=== PATIENT | female | born 1960 | race Caucasian/White ===

== ENCOUNTER 2019-07-10 20:07 | Inpatient (IN) | payer BC ==
[~2019-07-10] VITALS: Ht 152.4 cm; Wt 44.5 kg
[2019-07-10 20:17] VITALS: Ht 152.4 cm; Wt 44.5 kg
--- NOTE | 2019-07-10 20:23 | NUR ---
PT BIBA FOR SOB ONSET YESTERDAY/ PER MEDIC PT WAS FOUND AT HOME TRIPODING AND ABLE TO SPEAK ONLY 1-3 WORD SENTENCES. EN ROUTE WAS GIVEN ALBUTEROL/ATROVENT BREATHING TX. PER MDNOTED WITH INSPIRATORY AND EXPIRATORY WHEEZING WITH MILD ACCESSORY MUSCLE USE. PER PT +SICK CONTACTS AND HOME AND STS THINKS HAS THE FLU. PT CONNECTED TO FULL CM.
[2019-07-10 20:42] LABS: BASOPHIL % 0.4 % (0-2); PLATELET COUNT 216 x10^3mcL (130-400); RED CELL DISTRIBUTION WIDTH 13.2 % (11.5-14.5)
[2019-07-10 20:49] LABS: CALCIUM 9.5 mg/dL (8.5-10.1); CHLORIDE SERUM 107 mmol/L (98-107); CREATININE SERUM 0.7 mg/dL (0.6-1.0); GFR1 > 60 mL/min; GLUCOSE SERUM 126 mg/dL (74-106); POTASSIUM SERUM 3.8 mmol/L (3.5-5.1); SODIUM SERUM 142 mmol/L (136-145)
[2019-07-10 20:53] LABS: ALBUMIN 4.1 g/dL (3.4-5.0); ALKALINE PHOSPHATASE 74 U/L (46-116); ALT/SGPT 17 U/L (14-59); AST/SGOT 20 U/L (15-37); BILIRUBIN TOTAL 0.75 mg/dL (0.20-1.00); TOTAL PROTEIN, SERUM 7.9 g/dL (6.4-8.2)
--- NOTE | 2019-07-10 21:03 | NUR ---
BREATHING TX IN PROGRESS.
--- NOTE | 2019-07-10 22:14 | NUR ---
PT AMBULATORY TO RESPTROOM WITH EMT ARNAV; UPON RETURNING TO [facility] NOTED SOB. PT PLACED BACK ONTO 4 L O2 VIA NC.
--- NOTE | 2019-07-10 22:57 | NUR ---
PT AAO4, RESP E/U ON SUPPLEMENTAL O2. NO DISTRESS.
[2019-07-10] MEDS ORDERED: LISINOPRIL2.5 MG PO (23:43)
--- NOTE | 2019-07-10 23:49 | NUR ---
REPORT GIVEN TO MAYDA LACKEY TO ASSUME CARE.
[2019-07-10 23:56] LABS: CHOLESTEROL/HDL RATIO 2.5
[2019-07-11] VITALS (7 sets, daily range): BP systolic 121–187; BP diastolic 75–98
--- NOTE | 2019-07-11 00:56 | NUR ---
RECEIVED PT FROM ER, PT ADMIT FOR ACUTE ASTHMA EXACERBATION, PT IS A/O X4, VERBAL RESPONSIVE, LUNG SOUND WHEEZING MAMI, LABORED BREATHING, PT C/O PRODUCTIVE COUGH WITH SMALL WHITE SECRETION. PT IS ON TELE 15, STA, HR 116, DENY ANY CHEST PAIN OR DISCOMFORT, BOWEL SOUND PRESENT ALL 4 QUADRANTS, NO DISTENTION, NO TENDER. PEDAL PULSE PRESENT BOTH FEET, TRACE EDEMA BLE. IV AT RIGHT AC, NO LEAKING, NO INFILTRAITON. ALL ADLS ASSIST, ALL NEED MET, CALL LIGHT IN REACH, WILL CONTINUE TO MONITOR.
--- NOTE | 2019-07-11 01:30 | NUR ---
EYES CLOSED, NO FACIAL GRIMACING NOTED. RESPIRATION EVEN AND UNLABORED. BED IN LOWEST POSITION. CALL LIGHT WITHIN REACH.
--- NOTE | 2019-07-11 02:10 | NUR ---
STARTED ON LEVAUIN IVPB ORDERED. NO ADVERSE REACTION NOTED FROM ATB THERAPY.
--- NOTE | 2019-07-11 03:56 | NUR ---
TUNA SANDWICH /APPLE JUICE GIVEN AND WELL TOLERATED. NO S/S OF ASPIRATION NOTED. APPARENTLY COMFORTABLE AT THIS TIME. NO ACUTE RESPIRATORY DISTRESS. 02 SAT=97% AT 3//NC. CALL LIGHT WITHIN REACH.
--- NOTE | 2019-07-11 04:15 | NUR ---
PT WOKE UP WITH SOB AND WHEEZING BILATRALLY. BREATHING TREATMENT GIVEN BY RT. DR LANGFORD WAS NOTIFIED RE>ELEVATED FU=842/98, BA=011/MIN, AWAITN FOR NEW ORDER.
--- NOTE | 2019-07-11 04:30 | NUR ---
PT STILL WITH LESS WHEEZING, O2 SAT 97% AT 3L/NC. PT CLAIMED FEELS BETTER AFTER THE BREATHING TREATMENT. WILL CONTINUE TO MONITOR.
--- NOTE | 2019-07-11 04:42 | NUR ---
ZESTRIL 5MG GIVEN PO X 1 DOSE ORDERED. WILL CONTINUE TO MONITOR.
--- NOTE | 2019-07-11 06:06 | NUR ---
VITAL SIGNS RECHECKED= T=98.2, CP=323, R=22, RK=321/80 LBU=343, PT DENIES ANY PAIN/DISCOMFORT AT THIS TIME. ALL NEEDS ATTENDED.
[2019-07-11 07:07] LABS: PLATELET COUNT 199 x10^3mcL (130-400); RED CELL DISTRIBUTION WIDTH 13.5 % (11.5-14.5)
[2019-07-11 07:17] LABS: BASOPHIL % 0 % (0-2)
[2019-07-11 07:24] LABS: CALCIUM 8.9 mg/dL (8.5-10.1); CARBON DIOXIDE 22.7 mmol/L (21-32); CHLORIDE SERUM 109 mmol/L (98-107); CREATININE SERUM 0.9 mg/dL (0.6-1.0); GFR1 > 60 mL/min; GLUCOSE SERUM 162 mg/dL (74-106); MAGNESIUM 2.2 mg/dL (1.8-2.4); PHOSPHOROUS 2.4 mg/dL (2.5-4.9); POTASSIUM SERUM 3.7 mmol/L (3.5-5.1); SODIUM SERUM 143 mmol/L (136-145)
--- NOTE | 2019-07-11 08:03 | NUR ---
AAO TIMES 4. TELE # 15 ST 119. LUNGS WITH WHEEZES BILATERALLY. O2 SAT ON 3L NC 97% BS'S ACTIVE TIMES 4. PERIPHERAL PULSES PALPABLE. TRACE EDEMA BLE. IV SITE CDI. COOPERATIVE.
[2019-07-11 09:57] LABS: AMPHETAMINE QUAL UR NONE DETECTED (See below)
[2019-07-11 10:06] LABS: UA SPECIFIC GRAVITY >=1.030 (1.005-1.035); microscopic required? YES; urine erythrocyte 2+ (NEGATIVE)
--- NOTE | 2019-07-11 18:09 | NUR ---
AAO TIMES 4. NO SOB. NO C/0 PAIN. COOPERATIVE. IV SITE CDI. TELE # [address] O2 3L NC. USING BSC.
--- NOTE | 2019-07-11 19:30 | NUR ---
RECEIVED AWAKE IN BED WATCHING TV. SKIN WARM AND DRY TO TOUCH. RESPIRATION EVEN AND UNLABORED. LUBGS WITH RHONCHI BILATERAL BASES. STILL C/O SOB ON SLIGHT EXERTION. IV ACCESS AT THE RAC INTACT AND PATENT. NO SWELLING/REDNESS NOTED AT THE IV SITE. PLACED CALL LIGHT WITHIN REACH AND INSTRUCTED TO CALL FOR ANY ASSISTANCE NEEDED AND VERBALIZED UNDERSTANDING.
--- NOTE | 2019-07-12 00:30 | NUR ---
ALL DUE MEDICATIONS GIVEN ORDERED AND WELL TOLERATED. RESPIRATION EVEN AND UNLABORED. ASSISTED IN REPOSITONING FOR COMFORT. BED IS LOCKED AND IN LOWEST POSITION. CALL LIGHT WITHIN REACH.
[2019-07-12 05:12] VITALS: BP 132/92
--- NOTE | 2019-07-12 05:57 | NUR ---
QUIET IN BED, NO S/S OF PAIN/DISCOMFORT. RESPIRATION EVEN AND UNLABORED. ALL NEEDS ARTTENDED.
--- NOTE | 2019-07-12 05:59 | NUR ---
NO S/S OF ACUTE DISTRESS. DUE MEDICATIONS GIVEN AND WELL TOLERATED.
[2019-07-12 07:02] LABS: PLATELET COUNT 227 x10^3mcL (130-400); RED CELL DISTRIBUTION WIDTH 13.3 % (11.5-14.5)
[2019-07-12 07:08] LABS: BASOPHIL % 0 % (0-2); CALCIUM 9.5 mg/dL (8.5-10.1); CARBON DIOXIDE 24.6 mmol/L (21-32); CHLORIDE SERUM 107 mmol/L (98-107); CREATININE SERUM 0.8 mg/dL (0.6-1.0); GFR1 > 60 mL/min; GLUCOSE SERUM 134 mg/dL (74-106); MAGNESIUM 2.1 mg/dL (1.8-2.4); PHOSPHOROUS 4.2 mg/dL (2.5-4.9); SODIUM SERUM 142 mmol/L (136-145)
--- NOTE | 2019-07-12 07:30 | NUR ---
A&OX4, FOLLOWS COMMANDS AND COOPERATES WELL. TELE 15, SINUS TACHYCARDIA. PERIPHERAL PULSES PALAPBLE, W/ NO SIGNS OF EDEMA. WHEEZING BILATERALLY, ON 3L NC, AND 94% O2 SAT. PATIENT HAS PRODUCTIVE COUGH. NORMOACTIVE BSX4, VOIDS WELL AND USES BEDSIDE COMMODE W/ MINIMAL ASSISTANCE. ABLE TO AMBULATE FOR A VERY SHORT DISTANCE W/ OUT ASSISTANCE BEFORE HAVING SOB. RAC IV SITE IS CDI. PATIENT DENIES HAVING DISCOMFORT OR PAIN. WILL CONTINUE TO MONITOR.
[2019-07-12 08:05] VITALS: BP 128/69
[2019-07-12 11:50] VITALS: BP 138/84
--- NOTE | 2019-07-12 14:10 | NUR ---
GAVE PATIENT REPORT TO MAYDA HARMON. STATED PATIENT STATUS AND PLAN OF CARE. PATIENT DENIES HAVING ANY DISCOMFORT OR PAIN.
--- NOTE | 2019-07-12 14:32 | NUR ---
RECEIVED PATIENT REPORT FROM MAYDA SALDANA, WILL RESUME CARE. INTRODUCTIONS MADE, PATIENT ALERT AND ORIENTED, ABLE TO MAKE NEEDS KNOWN AND FOLLOW COMMANDS, DENIES HEADACHE OR CP. WHEEZING AUSCULTATED BILAT, PATIENT DENIES FEELING SOB ON 3L NC, REPORTS OCCASIONAL PROD COUGH SCANT AMOUNT PHLEGM. BREATHING E/U. NO EDEMA NOTED, PERIPHERAL PULSES PALPABLE. SKIN INTACT. DENIES ANY GI DISCOMFORT. IV SITE WNL. SAFETY PREC REINFORCED, CALL LIGHT WITHIN REACH.
--- NOTE | 2019-07-12 14:50 | NUR ---
O2 SAT CHECKED, 96% ON 3L. WEENING DOWN TO 2L, INFORMED PATIENT TO CALL IF FEELING SOB. WILL MONITOR TOLERATION.
[2019-07-12 16:19] VITALS: BP 128/79
--- NOTE | 2019-07-12 18:21 | NUR ---
PATIENT EATING DINNER MEAL, TOLERATING WELL, HOB ELEVATED. NO SIGN OF ACUTE DISTRESS. 1L NC IN PLACE, PER PATIENT DONE BY RT ABOUT 2 HOURS AGO. DENIES FEELING SOB. O2 SAT 91%. WILL REMAIN ON 1L AND CONT TO MONITOR. NO OTHER SIGNFICANT CHANGE IN CONDITION. WILL ENDORSE TO NOC NURSE.
--- NOTE | 2019-07-12 19:43 | NUR ---
RECEIVED AWAKE IN BED , HHN TREATMENT I8N PROGRESS. SKIN WARM AND DRY TO TOUCH. RESPIRATION EVEN AND UNLABORED WITH WHEEZING BILATERAL BASES. IV SITE AT THE RAC INTACT AND PATENT. PLACED CALL LIGHT WITHIN REACH, INSTUCTED PATIENT TO COMMUNICATE NEEDS BY USING THE CALL LIGHT, PT VERBALIZED UNDERSTANDING.
[2019-07-12 20:17] VITALS: BP 135/70
--- NOTE | 2019-07-12 23:29 | NUR ---
DUE MEDICATIONS GIVEN AND WELL TOLERATED. RESPIRATION EVEN AND UNLABORED BUT WITH STILL SOB ON SLIGHT EXERTION. BED IN LOWEST POSITION AND LOCKED. CALL LIGHT WITHIN REACH.
[2019-07-13 04:30] VITALS: BP 137/83
--- NOTE | 2019-07-13 05:16 | NUR ---
DUE MEDICATIONS GIVEN AND WELL TOLERATED. STILL WITH SOB ON SLIGHT EXERTION. ASSISTED IN REPOSITIONING FOR COMOFRT.
[2019-07-13 06:58] LABS: PLATELET COUNT 189 x10^3mcL (130-400); RED CELL DISTRIBUTION WIDTH 13.5 % (11.5-14.5)
--- NOTE | 2019-07-13 07:30 | NUR ---
RECEIVED PT FROM NOC MAYDA LACKEY. PT AA/VIVI LAYING IN BED ON 1LNC. REPORTS SOB WITH EXERTION. WHEEZING HEARD BILATERAL LUNGS THROUGHOUT. RR EVEN/SHALLOW/UNLABORED AT THIS TIME. RECEIVED BREATHING TREATMENT AT THIS TIME. HR ELEVATED, 115. DENIES CHEST PAIN. DENIES FELIX. NO DIZZINESS. NO N/V. NO PALPITATION. PT CALM/COOPERATIVE. IV WNL TO RAC, SALINE LOCKED. FLUSHES WELL. SITE WNL. FALL PREC IN PLACE. INSTRUCTED TO USE CALL LIGHT TO CALL FOR ASSISTANCE PRN. VERBALIZED UNDERSTANDING. BED IN LOW POSITION. CALL LIGHT WITH IN REACH. WILL CONT. TO MONITOR.
[2019-07-13 07:38] VITALS: BP 147/78
[2019-07-13 08:12] LABS: CALCIUM 9.5 mg/dL (8.5-10.1); CARBON DIOXIDE 23.9 mmol/L (21-32); CHLORIDE SERUM 107 mmol/L (98-107); CREATININE SERUM 0.8 mg/dL (0.6-1.0); GFR1 > 60 mL/min; GLUCOSE SERUM 125 mg/dL (74-106); POTASSIUM SERUM 4.2 mmol/L (3.5-5.1); SODIUM SERUM 144 mmol/L (136-145)
[2019-07-13 09:05] LABS: BAND NEUTROPHIL 3 % (0-10); BASOPHIL 0 % (0-2); MONOCYTE 3 % (0-7); SEGMENTED NEUTROPHILS 90 % (37-75)
[2019-07-13 09:06] LABS: rbc morphology (normal/abnorm) ABNORMAL (NORMAL)
[2019-07-13 09:07] LABS: PLATELET MORPHOLOGY PLATELETS NORMAL
--- NOTE | 2019-07-13 09:48 | NUR ---
PT FOUND LAYING IN BED ON ROOM AIR. O2 SPOT CHECKED 90% RESTING. RECEIVED ORDER FROM DR. HARRIS TO AMBULATE PT ON ROOM AIR, UNABLE AT THIS TIME. PT PLACED ON 2LNC, O2 SAT CONTINUED TO REMAIN 92%. INCREASED TO 3LNC. O2 SAT 94%. RR EVEN/UNLABORED AT THIS TIME. NO S/S OF ACUTE DISTRESS. DENIES DIZZINESS/LIGHTHEADEDNESS. AA/OX4. SPEECH CLEAR. DENIES SOB. CALM/COOPERATIVE LAYING IN BED. BED IN LOW POSITION. CALL LIGHT WITHIN REACH. WILL CONT. TO MONITOR.
--- NOTE | 2019-07-13 10:35 | NUR ---
AMBULATED W/ PT IN HALLWAYS ON ROOM AIR, O2 SAT 94%, DECREASED TO 91% BUT RETURNED BACK TO 94%. RR EVEN/UNLABORED. CHEST EXPANSION SYMMETRICAL. DENIES SOB. PT RETURNED BACK TO BED. O2 SAT REMAINED AT 94% ON ROOM AIR. NO S/S OF ACUTE DISTRESS. DENIES DIZZINESS. BED IN LOW POSITION. CALL LIGHT WITHIN REACH. WILL CONT. TO MONITOR.
[2019-07-13 11:54] VITALS: BP 135/96
--- NOTE | 2019-07-13 11:54 | NUR ---
PT FOUND TO BE AT 89% ON ROOM AIR BY RT. PLACED BACK ON 1LNC.
[2019-07-13] MEDS ORDERED: ZITHROMAX TRI-500 MG PO (11:55)
[2019-07-13] MEDS ORDERED: MEDDP PO (11:55)
[2019-07-13] MEDS ORDERED: SYMBICORT1 AE3 INH (11:55)
[2019-07-13 15:58] VITALS: BP 133/87
--- NOTE | 2019-07-13 16:05 | NUR ---
FOUND PT ON ROOM AIR, O2 SAT 90%. PLACED BACK ON OXYGEN, O2 SAT 92% ON 2LNC, 94% ON 3LNC. DENIES SOB. NO S/S OF ACUTE DISTRESS. AA/OX4. RR EVEN/UNLABORED AT THIS TIME. NO CHEST PAIN. CALM/COOPERATIVE. BED IN LOW POSITION. CALL LIGHT WITHIN REACH. WILL CONT. TO MONITOR.
--- NOTE | 2019-07-13 18:22 | NUR ---
PT AA/OX4. FOLLOWS COMPLEX COMMANDS, RESPONDS TO VERBAL STIMULI. NO S/S OF ACUTE DISTRESS. O2 SAT 94% ON 3LNC. DENIES SOB AT THIS TIME. NO CHEST PAIN. CALM/COOPERATIVE. NSR/SINUS TACH ON TELE. BED IN LOW POSITION. CALL LIGHT WITHIN REACH. WILL ENDORSE TO ONCOMING SHIFT.
--- NOTE | 2019-07-13 19:05 | NUR ---
CARE ASSUMED FROM OUTGOING RN. PT RESTING COMFORTABLY IN BED. NO ACUTE DISTRESS NOTED. EVEN AND UNLABORED RESPIRATIONS ON 3LNC. NO C/O SOB AT THIS TIME. ON TELE # [address] 102[address] IVL INTACT. DENIES ANY PAIN AT THIS TIME. BED IN LOWEST POSITION. SIDE RAILS UXP2. CALL LIGHT WITHIN REACH. WILL CONTINUE TO MONITOR.
[2019-07-13 20:08] VITALS: BP 150/6
--- NOTE | 2019-07-14 00:33 | NUR ---
PT RESTING COMFORTABLY IN BED. NO ACUTE DISTRESS NOTED. EVEN AND UNLABORED RESPIRATIONS ON 3LNC, OCC COUGH NOTED. NO C/O SOB OR ANY PAIN AT THIS TIME. IV PATENT AND INTACT, IV MED GIVEN PER EMAR, PT TOLERATED WELL. BED IN LOWEST POSITION. SIDE RAILS UPX2. CALL LIGHT WITHIN REACH. WILL CONTINUE TO MONITOR.
--- NOTE | 2019-07-14 03:00 | NUR ---
TRITRATED O2 TO 2LNC. PT TOLERATING WELL. O2 SATURATION AT 96%. WILL CONTINUE TO MONITOR.
[2019-07-14 05:21] VITALS: BP 135/84
[2019-07-14 06:12] LABS: BASOPHIL % 0.1 % (0-2); PLATELET COUNT 198 x10^3mcL (130-400); RED CELL DISTRIBUTION WIDTH 13.8 % (11.5-14.5)
[2019-07-14 06:15] LABS: CALCIUM 8.9 mg/dL (8.5-10.1); CARBON DIOXIDE 27.4 mmol/L (21-32); CHLORIDE SERUM 106 mmol/L (98-107); CREATININE SERUM 0.8 mg/dL (0.6-1.0); GFR1 > 60 mL/min; GLUCOSE SERUM 122 mg/dL (74-106); POTASSIUM SERUM 4.2 mmol/L (3.5-5.1); SODIUM SERUM 142 mmol/L (136-145)
--- NOTE | 2019-07-14 06:44 | NUR ---
PT SLEPT COMFORTABLY IN INTERVALS THROUGHOUT THE SHIFT. ALL NEEDS TENDED TO AND MET. ALL SCHEDULED MEDICATIONS GIVEN. TRITRATED O2 TO 1LNC, O2 SAT AT 94%, EVEN AND UNLABORED RESPIRATIONS WITH PRODUCTIVE COUGH, PT TOLERATING WELL. ON TELE# [address] 92[address] IVL PATENT AND INTACT. NO C/O OF PAIN THROUGHOUT THE SHIFT. BED IN LOWEST POSITION. SIDE RAILS UPX2. CALL LIGHT WITHIN REACH. WILL ENDORSE TO ONCOMING SHIFT.
--- NOTE | 2019-07-14 07:27 | NUR ---
PT LAYING IN BED. O2 SAT DROPPED TO 90% ON 1LNC. TITRATED TO 3LNC, O2 SAT 94%. CALLED RT FOR TREATMENT. PT DENIES SOB AT THIS TIME. SITTING UP IN BED EATING BREAKFAST. INSPIRATORY/EXPIRATORY WHEEZES HEARD BILATERAL LUNGS THROUGHOUT. NO S/S OF ACUTE DISTRESS. DENIES CHEST PAIN. HR RANGES BETWEEN 97-108BPM. IV WNL TO RAC, SALINE LOCKED. NO N/V. NO FEVER. NO CHILLS. CALM/COOPERATIVE. INSTRUCTED TO USE CALL LIGHT TO CALL FOR ASSISTANCE PRN. VERBALIZED UNDERSTANDING. BED IN LOW POSITION. CALL LIGHT WITHIN REACH. WILL CONT. TO MONITOR.
[2019-07-14 07:54] VITALS: BP 124/92
--- NOTE | 2019-07-14 11:40 | NUR ---
RECEIVED CALL FROM US Toxicology O2 DROPPED TO 89% ON ROOM AIR. PT EDUCATED ON OXYGEN THERAPY. PLACED BACK ON 3LNC. O2 SAT INCREASED TO 94%. DENIES SOB. RR EVEN/UNLABORED. CHEST EXPANSION SYMMETRICAL. SKIN COLOR NORMAL FOR ETHNICITY. IV WNL, SALINE LOCKED. AA/OX4. BED IN LOW POSITION. CALL LIGHT WITHIN REACH. WILL CONT. TO MONITOR.
[2019-07-14 11:46] VITALS: BP 144/93
--- NOTE | 2019-07-14 12:34 | NUR ---
PT SITTING UP AT SIDE OF BED EATING LUNCH. O2 SAT 98% ON 3LNC. TITRATED DOWN. 2LNC. O2 SAT 96%. DENIES SOB AT THIS TIME. CONGESTED COUGH NOTED. NO S/S OF ACUTE DISTRESS. DENIES CHEST PAIN. NSR/SINUS TACH ON TELE. CALM/COOPERATIVE. BED IN LOW POSITION. CALL LIGHT WITHIN REACH. WILL CONT. TO MONITOR.
--- NOTE | 2019-07-14 13:39 | NUR ---
Initial Nutrition Assessment: 240T/B KAREN HSIEH IA HR Dx: Acute asthma exacerbation PMHx: Asthma, HTN, Breast cancer. Left breast mastectomy in 2017, patient was on radiation for 3 weeks PSHx: , Left breast mastectomy in 2017 due to breast cancer, patient was on radiation for 3 weeks Labs: BG 122H, BUN 22H, WBC 11.1H Meds: Colace, Mucinex, norco, Pulmicort, zofran Diet: Regular PO intake since admission: (07/13) lunch 50%, breakfast 100%, (07/12) dinner 60%, lunch 85%, breakfast 80% Ht: 152.4 cm (60") Wt: 44.4 kg (98#) BMI: 19.1 kg/m2 Bed scale: 44.4 kg IBW: 100# (45 kg) %IBW: 98 UBW: 95-97# Age: 59/F Food Allergies: NKFA Skin: intact Edd: 21 Edema: none GI: Last BM: 07/11 Pt is a 59 years old female with PMH of Asthma and HTN who brought to ED due to acute shortness of breath. RD Note (07/14): Patient was alert and oriented and said that she ate >75% of breakfast this morning. Patient is willing to consume Ensure Enlive BID. Problem with: N/V/D/C: none Problems with: Chewing: Swallowing: none Current appetite: good Recent wt change: none %wt change: n/a Vitamin/Supplement use: none Special diet at home: Regular Physical activity: sedentary Nutrition education given: none at this time Food-drug interactions: none Education given: n/a Estimated Nutritional Needs Based on current body weight (44.4 kg) Energy: 6099-5039 kcal/day (35-40 kcal/kg for weight gain) Protein: 53-62 g/day (1.2-1.4 g/kg for PMHx CA) Fluid: 7391-3740 mL/day (1 mL/kcal) Nutrition Diagnosis: 1. Increased nutrient needs related to medical condition as evidenced by estimated calorie and protein needs. Intervention 1. Recommend continuing regular diet. 2. Recommend ONS Ensure BID. This will provide additional 700 kcal and 40g protein/day. Monitor/Evaluate Goal: PO intake at least 75% of estimated needs Monitor: PO intake, Labs, GI function F/U in 3-5 days as moderate risk 07/17-
--- NOTE | 2019-07-14 13:39 | NUR ---
1. Recommend continuing regular diet. 2. Recommend ONS Ensure BID. This will provide additional 700 kcal and 40g protein/day.
--- NOTE | 2019-07-14 14:16 | NUR ---
PT LEAVING AMA, REJI ROWE DISCUSSED RISK OF LEAVING AMA, PT VERBALIZED UNDERSTANING. CONTINUES TO WANT TO LEAVE AMA. O2 SAT ON ROOM AIR 89-93% ON CONTINUOUS PULSES OX. 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 PT REFUSES HOME O2 EVALUATION DESPITE RISKS. EDUCATION PROVIDED TO PATIENT REGARDING OXYGEN THERAPY. PT VERBALIZED UNDERSTANDING. CONTINUES TO WANT TO LEAVE AMA. SKIN COLOR NORMAL FOR ETHNICITY. RR SHALLOW/EVEN/UNLABORED. CONGESTED COUGH NOTED. NO CHEST PAIN. IV REMOVED FROM RFA, CATHETER IN TACT. PRESSURE APPLIED. SITE WNL. TELE REMOVED. SINUS TACH ON TELE. NO S/S OF PAIN. BELONGINGS WITH PATIENT. PRESCRIPTION PROVIDED TO PT PER REJI CRAIN. ACCOMPANIED BY . TAKEN BY WHEELCHAIR TO LOBBY BY FELECIA GREEN.
== END 2019-07-14 14:47 | disposition left against medical advice (07) | DRG 189 ==
LOC: ED 20:07 → DU 23:03
PROVIDERS: Emergency Medicine; ADMIT Family Medicine
DX: J96.00 Acute respiratory failure, unspecified whether with hypoxia or hypercapnia (principal); J45.21 Mild intermittent asthma with (acute) exacerbation; J44.0 Chronic obstructive pulmonary disease with (acute) lower respiratory infection; I10 Essential (primary) hypertension; Z53.21 Procedure and treatment not carried out due to patient leaving prior to being seen by health care provider; J20.9 Acute bronchitis, unspecified; Z85.3 Personal history of malignant neoplasm of breast; Z90.12 Acquired absence of left breast and nipple; Z79.899 Other long term (current) drug therapy
CPT/HCPCS: 83880; 87804; 90658; G0378; J0456; J1956; J2930; J3475; J7030; J7613; J7626; J7644; Q0092